=== PATIENT | male | born 1975 | race Caucasian/White ===

== ENCOUNTER 2021-03-30 22:16 | Inpatient (IN) | payer SELFPAY ==
[2021-03-30 22:17] VITALS: BP 158/93; PULSE 87; RESP 18; TEMP 36.7; O2SAT 99
--- NOTE | 2021-03-30 22:24 | ED_ITS ---
HPI - Psych General: Chief Complaint: Psychiatric Symptoms Stated Complaint: SI/HI Time Seen by Provider: 03/30/21 22:18 Source: patient and EMS Mode of arrival: EMS Limitations: no limitations History of Present Illness: HPI Narrative: 45-year-old male is here with EMS. Per EMS patient came to the friend here from [place] has been having severe marital problems. Friend called EMS tonight because he states that he had been making suicidal statements and did have a weapon. He had made statements that he is young to kill himself and his friend was also concerned as he had kids in the house and he did not feel patient was stable. Patient here is depressed and tearful. He avoids eye contact and will not answer questions that are asked. He is very avoidant. Associated symptoms: Reports depression and suicidal ideation Review of Systems Const: Denies: fever(s), chills, body aches or change in appetite Eyes: Denies: blurry vision or eye discomfort ENMT: Denies: throat pain or dental pain Card: Denies: chest pain Resp: Denies: dyspnea GI: Denies: abdominal pain, nausea, vomiting or diarrhea : Denies: dysuria Musc: Denies: neck pain or back pain Skin/Breast: Denies: rash Neuro: Denies: headache(s) Psych: Reports: anxiety, depression and suicidal ideation Mike/Lymph: Denies: easy bruising All/Imm: Denies: urticaria Physical Exam Const: COMMON NORMALS: patient oriented x3 and healthy appearing GENERAL APPEARANCE: anxious OTHER: tearful HENMT: COMMON NORMALS: normocephalic and atraumatic HEAD & SCALP: normocephalic and atraumatic Eye: COMMON NORMALS: Equal, round and reactive pupils present and EOMs intact bilaterally PUPIL: Yes Equal, round and reactive pupils present Neck/C-Spine: COMMON NORMALS: full ROM and supple Chest: COMMONS NORMALS: normal inspection of the chest and normal palpation of entire chest wall Resp: COMMON NORMALS: normal respiratory effort, No retractions, No use of accessory muscles and clear to auscultation bilaterally AUSCULTATION: clear to auscultation bilaterally Cardio: COMMON NORMALS: regular rate, regular rhythm and No murmurs present (Cardio) RATE: regular rate RHYTHM: regular rhythm GI: COMMON NORMALS: Normal to inspection, nondistended, normoactive bowel sounds present, Soft to palpation, non-tender and no masses PALPATION: Yes Soft to palpation Extremity: COMMON NORMALS: normal to inspection and full ROM Neuro: COMMON NORMALS: patient oriented x3, moves all extremities and no focal motor deficits Psych: COMMON NORMALS: mental status grossly normal and cooperative ATTITUDE: Yes Withdrawn affect present ACTIVITY/MOTOR BEHAVIOR: Yes Avoids eye contact (attititude/behavior) MOOD & AFFECT: Yes depressed mood THOUGHT CONTENT: Yes Suicidality present Skin: COMMON NORMALS: no rashes or lesions noted and no wounds GENERAL SKIN EXAM: no rashes or lesions noted Course Vital Signs: Vital signs: Vital Signs Temperature 98.0 F 03/30/21 22:17 Pulse Rate 87 03/30/21 22:17 Respiratory Rate 18 03/30/21 22:17 Blood Pressure 158/93 03/30/21 22:17 Pulse Oximetry 99 03/30/21 22:17 MDM - Psych MDM Narrative: Medical decision making narrative: Patient presents here with suicidal ideation along with alcohol tox Acacian. Patient placed on a 96-hour hold I spoke to psychiatrist and will admit. Patient is medically cleared. Lab Data: Labs: Lab Results 03/30/21 03/30/21 03/30/21 Range/Units 22:10 22:10 22:57 WBC 8.8 (4.0-10.0) 10^3/ uL RBC 5.06 (4.1-5.3) 10^6/u L Hgb 15.4 (11.7-16.6) g/dL Hct 44.6 (42.0-52.0) % MCV 88.1 (80-94) fL MCH 30.4 (28.0-34.0) pg MCHC 34.5 (30.0-36.0) g/dL RDW 12.5 (12.1-15.1) % Plt Count 206 (130-400) 10^3/c mm MPV 10.5 H (7.4-10.4) fL Neut % (Auto) 42.9 % Lymph % (Auto) 46.0 % Wallace % (Auto) 7.2 % Eos % (Auto) 2.8 % Baso % (Auto) 0.8 % Neut # (Auto) 3.78 (1.8-7.7) 10^3/u L Lymph # (Auto) 4.1 (0.8-4.8) 10^3/u L Wallace # (Auto) 0.6 (0.2-0.9) 10^3/u L Eos # (Auto) 0.3 (0.0-0.8) 10^3/u L Baso # (Auto) 0.1 (0.0-0.1) 10^3/u L Nucleated RBC % (a uto) 0 % Nucleated RBCs # 0.0 /100WBC Sodium 141 (136-145) mmol/L Potassium 3.5 (3.5-5.1) mmol/L Chloride 104 (98-107) mmol/L Carbon Dioxide 23 (22-29) mmol/L Anion Gap 17.5 (5-19) BUN 22 H (6-20) mg/dL Creatinine 0.8 (0.7-1.2) mg/dL GFR Calculation 103.6 (90-130) mL/min Glucose 92 (65-115) mg/dL Calculated Osmolal ity 295 (285-295) mOsm/k g Calcium 9.2 (8.5-10.5) mg/dL Total Bilirubin 0.2 (0.15-1.2) mg/dL AST 22 (0-40) U/L ALT 20 (0-41) U/L Alkaline Phosphata se 44 (40-130) IU/L Total Protein 7.1 (6.6-8.7) g/dL Albumin 4.9 (3.5-5.2) g/dL Globulin 2.2 (1.3-4.6) g/dL Salicylates < 0.3 L (3-10) mg/dL Urine Opiates Scre en Negative (Negative) ng/mL Acetaminophen < 5.0 L (10-30) ug/mL Ur Barbiturates Sc reen Negative (Negative) ng/mL Ur Phencyclidine S crn Negative (Negative) ng/mL Ur Amphetamines Sc reen Negative (Negative) ng/mL U Benzodiazepines Scrn Negative (Negative) ng/mL Urine Cocaine Scre en Negative (Negative) ng/mL U Marijuana (THC) Screen Positive H (Negative) ng/mL Ethyl Alcohol 181 H (0-10) mg/dL Discharge Plan Discharge Patient Disposition: Admitted As Inpatient Clinical Impression: Suicidal ideation Condition: Stable Coding Level of Care Code ED Fruit And Vegetable Classer for Chg Fwd Exam Comprehensive
[2021-03-30 22:31] LABS: Basophils # 0.1 10^3/uL (0.0-0.1); Basophils % 0.8 %; Eosinophils # 0.3 10^3/uL (0.0-0.8); Eosinophils % 2.8 %; Hematocrit 44.6 % (42.0-52.0); Hemoglobin 15.4 g/dL (11.7-16.6); Lymphocytes # 4.1 10^3/uL (0.8-4.8); Mean Corpuscular HGB Conc 34.5 g/dL (30.0-36.0); Mean Corpuscular Hemoglobin 30.4 pg (28.0-34.0); Mean Corpuscular Volume 88.1 fL (80-94); Mean Platelet Volume 10.5 fL (7.4-10.4); Monocytes # 0.6 10^3/uL (0.2-0.9); Monocytes % 7.2 %; Neutrophils # 3.78 10^3/uL (1.8-7.7); Neutrophils % 42.9 %; Nucleated Red Blood Cells % 0 %; Platelet Count 206 10^3/cmm (130-400); Red Blood Count 5.06 10^6/uL (4.1-5.3); Red Cell Distribution Width 12.5 % (12.1-15.1); White Blood Count 8.8 10^3/uL (4.0-10.0)
[2021-03-30 22:50] LABS: Alanine Aminotransferase 20 U/L (0-41); Albumin Level 4.9 g/dL (3.5-5.2); Alcohol Level 181 mg/dL (0-10); Alkaline Phosphatase 44 IU/L (40-130); Anion Gap 17.5 (5-19); Aspartate Amino Transferase 22 U/L (0-40); Blood Urea Nitrogen 22 mg/dL (6-20); Calcium 9.2 mg/dL (8.5-10.5); Carbon Dioxide 23 mmol/L (22-29); Chloride 104 mmol/L (98-107); Globulin 2.2 g/dL (1.3-4.6); Glomerular Filtration Rate 103.6 mL/min (90-130); Glucose 92 mg/dL (65-115); Osmolality Calculated 295 mOsm/kg (285-295); Potassium 3.5 mmol/L (3.5-5.1); Sodium 141 mmol/L (136-145); Total Bilirubin 0.2 mg/dL (0.15-1.2); Total Protein 7.1 g/dL (6.6-8.7)
[2021-03-30 22:51] LABS: Acetaminophen < 5.0 ug/mL (10-30); Salicylate < 0.3 mg/dL (3-10)
[2021-03-30] MEDS: LORazepam 2 mg/mL INJ 1 mL IV (23:07)
[2021-03-30 23:10] LABS: Amphetamines Screen Urine Negative (Negative); Barbiturates Screen Urine Negative (Negative); Benzodiazepines Screen Urine Negative (Negative); Cocaine Screen Urine Negative (Negative); Opiate Screen Urine Negative (Negative); PCP Screen Urine Negative (Negative); THC Screen Urine Positive (Negative)
[2021-03-30 23:49] VITALS: BP 142/107; BP 158/93; PULSE 77; PULSE 87; RESP 18; TEMP 36.8; O2SAT 97; O2SAT 99
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
--- NOTE | 2021-03-31 03:43 | PC.NURSE ---
ANXIETY COPING METHODS PT STATES, WHEN I AM HAVING A PANIC ATTACK, I NEED TO BE LEFT ALONE, TO USE BREATHING, LET ME TALK TO MYSELF-SAY IT ISN'T THAT BAD, THEY DID NOT MEAN IT, AND JUST SLEEP. IF PEOPLE PUSH ME, I GET QUIET AND EXPLODE, I YELL AND THROW THINGS.
[2021-03-31 06:00] VITALS: BP 129/89; PULSE 95; RESP 16; TEMP 36.9; O2SAT 96
[2021-03-31] MEDS: folic acid 1 mg Tablet PO (08:51)
[2021-03-31] MEDS: thiamine 100 mg Tablet PO (08:51)
[2021-03-31] MEDS: multivitamin therapeutic Tablet 1 TAB PO (08:51)
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
[2021-03-31] MEDS: citalopram 20 mg Tablet 10 MG PO (12:10)
[2021-03-31 14:00] VITALS: BP 117/74; PULSE 71; RESP 20; TEMP 37.1; O2SAT 96
[2021-03-31] MEDS: hyDROXYzine 25 mg Capsule 50 MG PO (21:28)
[2021-03-31] MEDS: trazodone 50 mg Tablet PO (21:28)
[2021-03-31] MEDS: ibuprofen 800 mg tablet PO (21:29)
[2021-03-31 21:31] VITALS: BP 129/80; PULSE 74; RESP 21; TEMP 37.6; O2SAT 95
[2021-04-01 05:59] VITALS: BP 114/78; PULSE 76; RESP 20; TEMP 36.6; O2SAT 94
[2021-04-01] MEDS: thiamine 100 mg Tablet PO (08:18)
[2021-04-01] MEDS: citalopram 20 mg Tablet 10 MG PO (08:18)
[2021-04-01] MEDS: folic acid 1 mg Tablet PO (08:18)
[2021-04-01] MEDS: multivitamin therapeutic Tablet 1 TAB PO (08:18)
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
[2021-04-01 09:40] VITALS: BP 114/78; PULSE 76; RESP 20; TEMP 36.6; O2SAT 94
--- NOTE | 2021-04-01 09:51 | PC.NURSE ---
Medication called into the [facility] pharmacy.
== END 2021-04-01 13:50 | disposition home or self-care (01) | DRG 897 ==
LOC: ER 23:19 → NP 23:36
PROVIDERS: Admitting Provider Psychiatry & Neurology Psychiatry; Emergency Provider Emergency Medicine; Visit Provider Psychiatry & Neurology Psychiatry
DX: F10.129 Alcohol abuse with intoxication, unspecified (principal); R45.851 Suicidal ideations; F43.10 Post-traumatic stress disorder, unspecified; Z91.14 Patient's other noncompliance with medication regimen; Z87.891 Personal history of nicotine dependence; F43.25 Adjustment disorder with mixed disturbance of emotions and conduct
CPT/HCPCS: 80053; 80306; 80307; 85025; 96374; 99285; J2060